=== PATIENT | male | born 1990 | race Caucasian/White ===

== ENCOUNTER 2019-12-13 03:09 | Emergency (ER) | payer MEDICAID ==
[~2019-12-13] VITALS: Ht 198.1 cm; Wt 79.5 kg
[2019-12-13] MEDS ORDERED: buprenorphine/naloxone 2-0.5mg sublingual tablet SL SCH (03:30)
[2019-12-13] MEDS ORDERED: proMETHazine 12.5mg rectal suppository RC ONE (03:30)
[2019-12-13] MEDS ORDERED: haloperidol lactate 5mg/ml inj IM ONE (04:00)
--- NOTE | 2019-12-13 04:01 | NUR ---
Pt had a bout of diarrhea. He states the suppository came out before absorbsion
[2019-12-13] MEDS ORDERED: metoclopramide 5 mg/ml inj IV ONE (04:35)
[2019-12-13] MEDS ORDERED: normal saline 1000ml 1,000 ML IV ONE (04:35)
[2019-12-13] MEDS ORDERED: diphenhydrAMINE 50 mg/ml inj IV ONE (05:00)
[2019-12-13 05:10] LABS: ALANINE AMINOTRANSFERASE 14 U/L (12-78); ALBUMIN 4.8 G/DL (3.4-5.0); ALBUMIN/GLOBULIN RATIO 1.8 (1.1-1.5); ALKALINE PHOSPHATASE 44 IU/L (46-116); ANION GAP 11 (8-16); ASPARTATE AMINO TRANSFERASE 14 U/L (10-37); BILIRUBIN,TOTAL 0.6 MG/DL (0.1-1.0); BLOOD UREA NITROGEN 23 MG/DL (7-18); BUN/CREATININE RATIO 26.1 (5.4-32.0); CALCIUM 9.4 MG/DL (8.5-10.1); CHLORIDE 104 MMOL/L (99-107); CREATININE 0.88 MG/DL (0.60-1.10); GLUCOSE 120 MG/DL (70-104); LIPASE 134 U/L (73-393); POTASSIUM 4.3 MMOL/L (3.5-5.1); SODIUM 141 MMOL/L (135-145); TOTAL CARBON DIOXIDE 26.4 MMOL/L (24-32); TOTAL PROTEIN 7.5 G/DL (6.4-8.2); eGFR > 90 ML/MIN
--- NOTE | 2019-12-13 05:32 | NUR ---
pt removes blood pressure cuff and O2 probe.
[2019-12-13] MEDS ORDERED: PROM25SU46 RC (05:47)
[2019-12-13 06:00] VITALS: BP 138/65
== END 2019-12-13 06:02 | disposition home or self-care (01) ==
LOC: ER 03:10
DX: F11.23 Opioid dependence with withdrawal (principal); R11.2 Nausea with vomiting, unspecified; R19.7 Diarrhea, unspecified; R10.84 Generalized abdominal pain; Z79.899 Other long term (current) drug therapy
CPT/HCPCS: 36415; 80053; 83690; 96361; 96372; 96374; 96375; 99284; J1200; J1630; J2765; J7030

== ENCOUNTER 2019-12-15 13:31 | Emergency (ER) | payer MEDICAID ==
[~2019-12-15] VITALS: Ht 198.1 cm; Wt 48.1 kg
[~2019-12-15 13:31] MED LIST: PROM25SU46 RC
[2019-12-15 13:45] VITALS: BP 116/84
--- NOTE | 2019-12-15 16:45 | NUR ---
PT CALLED 3 TIMES TO MAIN ER. LAB ATTEMPTED TO GET LABS PRIOR TO BEING CALLED BACK BUT PT WAS NOT COOPERATING. PT WENT INTO THE LOBBY RESTROOM AND WAS SEEN LEAVING BY PT'S IN LOBBY
== END 2019-12-15 16:50 | disposition left against medical advice (07) ==
LOC: ER 13:31
DX: R10.84 Generalized abdominal pain (principal); R11.2 Nausea with vomiting, unspecified; Z53.21 Procedure and treatment not carried out due to patient leaving prior to being seen by health care provider